=== PATIENT | male | born 1975 | race Caucasian/White ===

== ENCOUNTER 2019-12-26 09:39 | Emergency (ER) | payer OTHER, SELFPAY ==
[2019-12-26 09:46] VITALS: BP 152/71; PULSE 92; RESP 16; TEMP 37; O2SAT 99
--- NOTE | 2019-12-26 09:51 | ED.SKABFB ---
HPI - Skin/Abscess/Foreign Bdy General Chief complaint: Skin/Abscess/Foreign Body Stated complaint: right ear swelling Time Seen by Provider: 12/26/19 09:51 Source: patient and RN notes reviewed History of Present Illness HPI narrative: Patient is a 44-year-old male who presents the urgent care with complaints of external right earlobe swelling and redness which started 2 days ago. Patient states that he is taken 2 doses of doxycycline which was prescribed from the [facility] doctor. Patient states that the doctor did advise him to follow-up at an urgent care the next time they.to have the ear assessed. Patient denies of any known trauma or injury. Denies any use of [id number] medication or ice for comfort. States that he also noted some bumps on the back of his tongue approximately 2 days ago as well. No other acute complaints. Denies of any fever, nausea, vomiting. Denies of any hearing changes. Patient aware of the plan of care. Related Data Home Medications Medication Instructions Recorded Confirmed doxycycline monohydrate 12/26/19 Allergies Allergy/AdvReac Type Severity Reaction Status Date / Time No Known Allergies Allergy Verified 12/26/19 09:50 Review of Systems Review of Systems: Narrative: CONSTITUTIONAL: Denies fever, chills, or sweats. EYES: Denies visual changes, redness, or discharge. ENT: Reports of swelling and redness to the external right ear lobe and bumps to the back of the tongue CARDIOVASCULAR: Denies chest pain, palpitations, or edema. RESPIRATORY: Denies cough or dyspnea. GASTROINTESTINAL: Denies abdominal pain, nausea, vomiting, or diarrhea. GENITOURINARY: Denies dysuria or hematuria. SKIN: Denies rash or itching. MUSCULOSKELETAL: Denies back pain, joint pain, or myalgia. NEUROLOGIC: Denies headache, numbness, or weakness. All other systems reviewed are negative, except as documented in HPI. PMFSH Comments At the time of my signature, I reviewed and agree with the nursing past medical, surgical, social, and family history. There is no relevant family history pertinent to the patient complaint. Exam Narrative: Exam Narrative: GENERAL: This is a well-nourished, well-developed patient, in no apparent distress. HEAD: normocephalic, atraumatic. EYES: PERRL. Sclera clear/white. Vision is grossly intact. EARS: Right external earlobe with moderate erythema and mild edema without any obvious injury, left external ears normal, auditory canals clear and without drainage, TMs normal without perforation. Hearing grossly intact. NOSE: External nose normal with no obvious nasal discharge, nares without redness, no rhinorrhea. THROAT: Mucous membranes moist; transient lingual papillitis noted to the back of the tongue NECK: Neck supple, SKIN: warm, intact with no suspicious lesions or rash, good texture and turgor. NEURO: awake, alert, and oriented to person, place and time. There were no obvious focal neurologic abnormalities. EXTREMITIES: No clubbing, cyanosis, or edema. Course Vital Signs Vital signs: Vital Signs Temperature 98.6 F 12/26/19 09:46 Pulse Rate 92 12/26/19 09:46 Respiratory Rate 16 12/26/19 09:46 Blood Pressure 152/71 H 12/26/19 09:46 Pulse Oximetry 99 12/26/19 09:46 Temperature 98.6 F 12/26/19 09:46 Pulse Rate 92 12/26/19 09:46 Respiratory Rate 16 12/26/19 09:46 Blood Pressure 152/71 H 12/26/19 09:46 Pulse Oximetry 99 12/26/19 09:46 Reviewed?patient is informed that they may have pre-hypertension or hypertension based on a blood pressure reading in the department. I recommend the patient call the primary care provider listed on their discharge instructions or a physician of their choice this week to arrange follow-up for further evaluation of possible pre-hypertension or hypertension. MDM - Skin/Abscess/Foreign Bdy MDM Narrative Medical decision making narrative: Advised patient to continue using the doxycycline as prescribed from his previous phys
== END 2019-12-26 10:09 | disposition home or self-care (01) ==
PROVIDERS: Emergency Provider Nurse Practitioner Family
DX: H93.8X1 Other specified disorders of right ear (principal); K14.8 Other diseases of tongue
CPT/HCPCS: 99211; G0463